=== PATIENT | male | born 1955 | race Caucasian/White ===

== ENCOUNTER 2018-12-27 09:29 | Inpatient (IN) | payer MEDICAID, OTHER ==
[~2018-12-27] VITALS: Ht 165.1 cm; Wt 103.4 kg
[2018-12-27] MEDS ORDERED: SODIUM CHLORIDE 0.9% 1000ML BAG (SEPSIS BOLUS) IV ONE (11:30)
[2018-12-27 12:13] LABS: CLARITY URINE CLEAR (CLEAR); COLOR URINE YELLOW (YELLOW); KETONES URINE NEGATIVE (NEGATIVE); LEUKOCYTE ESTERASE URINE NEGATIVE (NEGATIVE); NITRITE URINE NEGATIVE (NEGATIVE); OCCULT BLOOD URINE NEGATIVE (NEGATIVE); PROTEIN URINE NEGATIVE (NEGATIVE); SPECIFIC GRAVITY URINE 1.008 (1.005-1.030); UROBILINOGEN URINE 0.2 E.U./dL (0.2-1.0)
[2018-12-27 12:23] LABS: BASOPHILS % 0.3 % (0.0-2.0); EOSINOPHILS % 0.7 % (0.0-5.0); HEMOGLOBIN. 15.6 g/dL (14.0-18.0); LYMPHOCYTES % 11.1 % (20.0-50.0); MEAN CORPUSCULAR HEMOGLOBIN 28.9 pg (28.0-32.0); MEAN CORPUSCULAR VOLUME 85.2 fL (80.0-94.0); MEAN PLATELET VOLUME 9.3 fl (7.4-10.4); MONOCYTES % 4.4 % (2.0-8.0); NEUTROPHILS % 83.5 % (40.0-76.0); PLATELET 210 x1000/uL (130-400); RED CELL DISTRIBUTION WIDTH 13.2 % (11.6-14.6)
[2018-12-27 12:24] LABS: INR 1.1
[2018-12-27 12:26] LABS: CHLORIDE 108 mEq/L (98-107)
[2018-12-27] MEDS ORDERED: ONDANSETRON HCL 4MG/2ML INJ IV PRN (20:00)
[2018-12-27] MEDS ORDERED: ACETAMINOPHEN 325MG TABLET PO PRN (20:00)
[2018-12-28 00:30] VITALS: BP 148/74
[2018-12-28 04:00] VITALS: BP 161/105
[2018-12-28] MEDS ORDERED: AMLO10TA80 PO (05:42)
[2018-12-28] MEDS ORDERED: CLONIDINE 0.1MG TABLET PO PRN (06:00)
[2018-12-28 06:11] LABS: CHLORIDE 108 mEq/L (98-107)
[2018-12-28 06:31] LABS: BASOPHILS % 0.4 % (0.0-2.0); EOSINOPHILS % 3.3 % (0.0-5.0); HEMATOCRIT. 43.8 % (42.0-52.0); LYMPHOCYTES % 23.7 % (20.0-50.0); MEAN CORPUSCULAR HEMOGLOBIN 29.2 pg (28.0-32.0); MEAN CORPUSCULAR VOLUME 85.2 fL (80.0-94.0); MEAN PLATELET VOLUME 9.3 fl (7.4-10.4); NEUTROPHILS % 65.6 % (40.0-76.0); PLATELET 210 x1000/uL (130-400); RED BLOOD CELL COUNT 5.14 mill/uL (4.7-6.1); RED CELL DISTRIBUTION WIDTH 13.4 % (11.6-14.6)
[2018-12-28 08:00] VITALS: BP 112/63
[2018-12-28] MEDS: ASPIRIN 81MG EC TABLET PO SCH (09:04)
[2018-12-28] MEDS: AMLODIPINE 5MG TABLET PO SCH (09:04)
[2018-12-28 12:00] VITALS: BP 129/64
[2018-12-28] MEDS: CLONIDINE 0.1MG TABLET PO SCH ×2 (14:12→21:42)
[2018-12-28 16:02] VITALS: BP 120/60
[2018-12-28] MEDS: METFORMIN HCL 500MG TABLET PO SCH (17:19)
[2018-12-28] MEDS: OMEPRAZOLE 20MG CAPSULE EXTENDED RELEASE PO SCH (17:19)
[2018-12-28 20:09] VITALS: BP 126/71
[2018-12-29] VITALS: BP 96/53
[2018-12-29 04:00] VITALS: BP 105/61
[2018-12-29] MEDS: CLONIDINE 0.1MG TABLET PO SCH ×3 (06:00→21:45)
[2018-12-29] MEDS: OMEPRAZOLE 20MG CAPSULE EXTENDED RELEASE PO SCH (06:11)
[2018-12-29] MEDS: METFORMIN HCL 500MG TABLET PO SCH ×2 (06:12→18:17)
[2018-12-29 06:49] LABS: BASOPHILS % 0.8 % (0.0-2.0); EOSINOPHILS % 5.5 % (0.0-5.0); HEMATOCRIT. 43.4 % (42.0-52.0); HEMOGLOBIN. 15.1 g/dL (14.0-18.0); LYMPHOCYTES % 33.3 % (20.0-50.0); MEAN CORPUSCULAR HEMOGLOBIN 29.4 pg (28.0-32.0); MEAN CORPUSCULAR VOLUME 84.5 fL (80.0-94.0); MEAN PLATELET VOLUME 9.2 fl (7.4-10.4); NEUTROPHILS % 53.4 % (40.0-76.0); PLATELET 210 x1000/uL (130-400); RED BLOOD CELL COUNT 5.14 mill/uL (4.7-6.1); RED CELL DISTRIBUTION WIDTH 13.4 % (11.6-14.6)
[2018-12-29 06:52] LABS: CHLORIDE 107 mEq/L (98-107)
[2018-12-29 08:00] VITALS: BP 118/78
[2018-12-29] MEDS: ASPIRIN 81MG EC TABLET PO SCH (09:24)
[2018-12-29] MEDS: AMLODIPINE 5MG TABLET PO SCH (09:25)
[2018-12-29 12:00] VITALS: BP 122/65
[2018-12-29 16:00] VITALS: BP 115/62
[2018-12-29] MEDS ORDERED: ATORVASTATIN CALCIUM 10MG TABLET PO SCH (21:00)
[2018-12-30 00:16] VITALS: BP 113/60
[2018-12-30 04:00] VITALS: BP 109/63
[2018-12-30] MEDS: CLONIDINE 0.1MG TABLET PO SCH ×2 (06:00→15:08)
[2018-12-30 06:30] LABS: BASOPHILS % 0.4 % (0.0-2.0); EOSINOPHILS % 4.6 % (0.0-5.0); HEMATOCRIT. 43.1 % (42.0-52.0); LYMPHOCYTES % 31.1 % (20.0-50.0); MEAN CORPUSCULAR HEMOGLOBIN 29.1 pg (28.0-32.0); MEAN CORPUSCULAR VOLUME 83.7 fL (80.0-94.0); MEAN PLATELET VOLUME 9.4 fl (7.4-10.4); MONOCYTES % 7.1 % (2.0-8.0); NEUTROPHILS % 56.8 % (40.0-76.0); PLATELET 208 x1000/uL (130-400); RED BLOOD CELL COUNT 5.14 mill/uL (4.7-6.1); RED CELL DISTRIBUTION WIDTH 13.2 % (11.6-14.6)
[2018-12-30] MEDS: OMEPRAZOLE 20MG CAPSULE EXTENDED RELEASE PO SCH (06:39)
[2018-12-30] MEDS: METFORMIN HCL 500MG TABLET PO SCH (06:39)
[2018-12-30 07:31] LABS: CHLORIDE 107 mEq/L (98-107)
[2018-12-30] MEDS: AMLODIPINE 5MG TABLET PO SCH (09:58)
[2018-12-30] MEDS: ASPIRIN 81MG EC TABLET PO SCH (09:58)
[2018-12-30 11:53] VITALS: BP 118/71
[2018-12-30 15:36] VITALS: BP 115/71
[2018-12-30] MEDS ORDERED: METF500T PO (16:54)
[2018-12-30] MEDS ORDERED: CLON0.1T14 PO (16:54)
[2018-12-30] MEDS ORDERED: ASPI-1158 PO (16:54)
[2018-12-30] MEDS ORDERED: AMLO5TAB88 PO (16:54)
[2018-12-30] MEDS ORDERED: HYDR-4009 MT (16:54)
[2018-12-30] MEDS ORDERED: OMEP20CA10 PO (16:54)
[2018-12-30] MEDS ORDERED: ATOR10TA PO (16:54)
[2018-12-30 18:08] VITALS: BP 130/78
== END 2018-12-30 19:00 | disposition home or self-care (01) | DRG 347 ==
LOC: ER 10:42 → 6WST 15:40 → EDBEDREQTM 15:48 → EDBEDREQSVC 15:48 → EDBEDREQ 15:48 → ENRESERV 21:57
PROVIDERS: ADMIT Internal Medicine; ATTEND Internal Medicine
DX: M51.26 Other intervertebral disc displacement, lumbar region (principal); E87.2 Acidosis; I95.9 Hypotension, unspecified; E87.8 Other disorders of electrolyte and fluid balance, not elsewhere classified; G90.8 Other disorders of autonomic nervous system; I11.9 Hypertensive heart disease without heart failure; E66.9 Obesity, unspecified; R00.1 Bradycardia, unspecified; R73.03 Prediabetes; M19.90 Unspecified osteoarthritis, unspecified site; F32.9 Major depressive disorder, single episode, unspecified; E78.1 Pure hyperglyceridemia; K21.9 Gastro-esophageal reflux disease without esophagitis; E78.5 Hyperlipidemia, unspecified; M54.40 Lumbago with sciatica, unspecified side; Z79.82 Long term (current) use of aspirin; Z79.899 Other long term (current) drug therapy; Z87.440 Personal history of urinary (tract) infections; Z71.3 Dietary counseling and surveillance; Z68.37 Body mass index [BMI] 37.0-37.9, adult
CPT/HCPCS: 36415; 71045; 72148; 80048; 80061; 83036; 83605; 83735; 84145; 84443; 84484; 93005; 93306; 93970; 99285; J7030